=== PATIENT | male | born 1965 | race Caucasian/White ===

== ENCOUNTER 2021-04-03 05:15 | Day surgery (SDC) | payer OTHER ==
[~2021-04-03] VITALS: Ht 177.8 cm; Wt 104.5 kg
[2021-04-03] MEDS ORDERED: SODIUM CHLORIDE 0.9% 1,000 ML IV ONE (05:45)
[2021-04-03 06:52] LABS: GLUCOMETER DEV NAME(LOC) SDS.; GLUCOSE,POINT OF CARE 219 MG/DL (70-110)
[2021-04-03] MEDS ORDERED: GLYB5TAB10 PO (07:00)
[2021-04-03] MEDS ORDERED: APIX5TAB PO (07:00)
[2021-04-03] MEDS ORDERED: FERR325T23 PO (07:00)
[2021-04-03] MEDS ORDERED: CLOP75TA32 PO (07:00)
[2021-04-03] MEDS ORDERED: ASPI-1444 PO (07:00)
[2021-04-03] MEDS ORDERED: ATOR40TA71 PO (07:00)
[2021-04-03] MEDS ORDERED: INSU100I26 SQ (07:00)
[2021-04-03] MEDS ORDERED: FENO54TA7 PO (07:00)
[2021-04-03] MEDS ORDERED: DOXY-336 PO (07:00)
[2021-04-03] MEDS ORDERED: OMEP40CA21 PO (07:00)
[2021-04-03] MEDS ORDERED: METO25 PO (07:00)
[2021-04-03] MEDS ORDERED: SODI473S9 TP (07:00)
[2021-04-03] MEDS ORDERED: METO-391 PO (07:00)
[2021-04-03] MEDS ORDERED: METF-446 PO (07:00)
[2021-04-03] MEDS ORDERED: ONDA4TAB96 PO (07:00)
[2021-04-03] MEDS ORDERED: LIDOCAINE/PF 1% 30 ML VIAL ONE (07:06)
[2021-04-03] MEDS ORDERED: SODIUM BICARBONATE 50 MEQ/50 ML VIAL ONE (07:06)
[2021-04-03] MEDS ORDERED: IODIXANOL 320 MG/ML 150 ML VIAL ONE ×2 (07:06→08:29)
[2021-04-03] MEDS ORDERED: HEPARIN SODIUM 1000 UNITS/NS 1,000 ML ONE (07:06)
[2021-04-03] MEDS ORDERED: IODIXANOL 320 MG/ML 50 ML VIAL ONE (07:06)
[2021-04-03 07:37] VITALS: BP 146/69
[2021-04-03] MEDS ORDERED: FentaNYL CITRATE PF 100 MCG/2 ML VIAL ONE ×2 (07:45→09:24)
[2021-04-03] MEDS ORDERED: MIDAZOLAM HCL 2 MG/2 ML VIAL ONE ×2 (07:46→09:24)
[2021-04-03] MEDS ORDERED: MIDAZOLAM HCL 2 MG/2 ML VIAL IVP ONE ×4 (08:00→10:15)
[2021-04-03] MEDS ORDERED: HEPARIN SODIUM,PORCINE 5,000 UNITS/ML VIAL IVP ONE ×3 (08:00→09:45)
[2021-04-03] MEDS ORDERED: IODIXANOL 320 MG/ML 150 ML VIAL IARTER ONE ×2 (08:00→09:15)
[2021-04-03] MEDS ORDERED: FentaNYL CITRATE PF 100 MCG/2 ML VIAL IVP ONE ×4 (08:00→10:15)
[2021-04-03] MEDS ORDERED: LIDOCAINE 1% 30 ML/SOD BICARB 8.4% 4 ML SQ ONE (08:00)
[2021-04-03] MEDS ORDERED: HEPARIN SODIUM 1000 UNITS/NS 1,000 ML IARTER ONE (08:00)
[2021-04-03 10:02] VITALS: BP 140/68
[2021-04-03] MEDS ORDERED: METOPROLOL TARTRATE 50 MG TABLET PO ONE (14:45)
[2021-04-03] MEDS ORDERED: METOPROLOL TARTRATE 50 MG TABLET ONE (14:48)
== END 2021-04-03 16:20 | disposition home or self-care (01) ==
LOC: CATHLAB 05:15
PROVIDERS: ATTEND Internal Medicine Interventional Cardiology
DX: E11.51 Type 2 diabetes mellitus with diabetic peripheral angiopathy without gangrene (principal); I70.235 Atherosclerosis of native arteries of right leg with ulceration of other part of foot; L97.518 Non-pressure chronic ulcer of other part of right foot with other specified severity; I10 Essential (primary) hypertension; E66.9 Obesity, unspecified; Z89.432 Acquired absence of left foot; Z89.431 Acquired absence of right foot; Z90.49 Acquired absence of other specified parts of digestive tract; Z98.890 Other specified postprocedural states; E78.00 Pure hypercholesterolemia, unspecified; Z79.01 Long term (current) use of anticoagulants; Z79.899 Other long term (current) drug therapy
CPT/HCPCS: 37226; 75630; 82962; 93005; 99152; 99153; C1725; C1874; C1887; J1644; J2250; J3010; J3490 ×2; J7030; Q9967 ×2; 36200; 37205; 75716; 75962; Z7610